=== PATIENT | female | born 1975 | race Two or more races ===

== ENCOUNTER 2023-07-11 15:40 | Emergency (ER) | payer BC ==
[~2023-07-11] VITALS: Ht 157.5 cm; Wt 80.0 kg
[2023-07-11 15:41] VITALS: BP 155/82; PULSE 92; RESP 16; O2SAT 97
== END 2023-07-12 00:26 | disposition left against medical advice (07) ==
LOC: ER 15:40
DX: J02.9 Acute pharyngitis, unspecified (principal); R13.0 Aphagia; I10 Essential (primary) hypertension; E11.9 Type 2 diabetes mellitus without complications; J45.909 Unspecified asthma, uncomplicated; Z98.890 Other specified postprocedural states; Z88.0 Allergy status to penicillin; Z88.2 Allergy status to sulfonamides
CPT/HCPCS: 70360; 70490; 71250